=== PATIENT | female | born 1960 | race Hispanic/Latino ===

== ENCOUNTER 2021-09-04 19:49 | Emergency (ER) | payer SELFPAY ==
[~2021-09-04] VITALS: Ht 154.9 cm; Wt 81.2 kg
[2021-09-04] MEDS ORDERED: SOTROVIMAB 500 MG in SODIUM CHLORIDE 0.9% 100 ML IV ONE (20:30)
== END 2021-09-04 21:46 | disposition home or self-care (01) ==
LOC: ER 19:58
DX: U07.1 COVID-19 (principal); R05.9 Cough, unspecified
CPT/HCPCS: 99284